=== PATIENT | female | born 1990 | race African-American/Black ===

== ENCOUNTER 2017-02-03 22:44 | Emergency (ER) | payer MEDICAID ==
[2017-02-04] MEDS ORDERED: PRENATAL-U CAPS1 CAP PO (00:07)
[2017-02-04 01:12] LABS: URINE APPEARANCE CLEAR; URINE BILIRUBIN NEGATIVE (NEG); URINE BLOOD LARGE (NEG); URINE COLOR YELLOW; URINE GLUCOSE (UA) NEGATIVE (NEG); URINE KETONE NEGATIVE (NEG); URINE LEUKOCYTE ESTERASE NEGATIVE (NEG); URINE NITRITE NEGATIVE (NEG); URINE PROTEIN NEGATIVE (NEG)
[2017-02-04 01:20] LABS: URINE EPITHELIAL CELLS 0-3 /[HPF] (0-10); URINE WBC RARE /[HPF] (0-5)
== END 2017-02-04 02:47 ==
LOC: EDMED 22:44
PROVIDERS: Emergency Medicine
DX: O20.0 Threatened abortion (principal); Z3A.13 13 weeks gestation of pregnancy